=== PATIENT | female | born 1965 | race African-American/Black ===

== ENCOUNTER → 2020-08-08 | Outpatient (CLI) | payer MEDICAID ==
[~2020-08-08] MED LIST: ACET-2708 PO; ASPI-1497 PO; ATOR10TA69 PO; BENA20TA10 PO; CHOL50003 PO; TRIAMTERENE PO
== END | disposition home or self-care (01) ==
LOC: LAB 07:07
PROVIDERS: ATTEND Surgery
DX: Z01.812 Encounter for preprocedural laboratory examination (principal); Z20.828 Contact with and (suspected) exposure to other viral communicable diseases; C50.912 Malignant neoplasm of unspecified site of left female breast
CPT/HCPCS: 87426

== ENCOUNTER → 2020-08-08 | Outpatient (CLI) | payer MEDICAID ==
[~2020-08-08] MED LIST changes: +LIDOCAINE HCL 1% 20ML VIAL (Pyxis) INJ ONE; +SODIUM BICARBONATE 4% (2.4MEQ) 5ML VIAL IV ONE; +TETRACAINE/BENZOCAINE/BUTAMBEN 20 GM SPRAY MM ONE
== END | disposition home or self-care (01) ==
LOC: RAD 09:47
PROVIDERS: ATTEND Surgery
DX: N63.20 Unspecified lump in the left breast, unspecified quadrant (principal); C50.912 Malignant neoplasm of unspecified site of left female breast; Z79.82 Long term (current) use of aspirin; Z79.899 Other long term (current) drug therapy
CPT/HCPCS: 19285; J3490; Z7610

== ENCOUNTER → 2020-08-09 | Day surgery (SDC) | payer MEDICAID ==
[~2020-08-09] VITALS: Ht 152.4 cm; Wt 73.0 kg
[~2020-08-09] MED LIST changes: +BUPIVACAINE HCL 0.5% (5MG/ML) 50ML ONE; +BUPIVACAINE HCL/PF 0.25% (2.5MG/ML) 10ML ONE; +CEFAZOLIN SODIUM 1000MG/VIAL ONE; +DEXAMETHASONE 4MG/ML 1ML VIAL ONE; +EPHEDRINE SULFATE 50MG/ML VIAL ONE; +FENTANYL CITRATE/PF 50MCG/ML 2ML VIAL ONE; +HYDROMORPHONE HCL/PF 2MG/ML CPJ IV PRN; +KETOROLAC 30MG/ML VIAL ONE; +LACTATED RINGERS 1,000 ML IV SCH; +MEPERIDINE HCL/PF 25MG/ML CPJ IV PRN; +METHYLENE BLUE 50 MG/10 ML AMP IV ONE; +METOCLOPRAMIDE HCL 10MG/2ML VIAL ONE; +MIDAZOLAM HCL 2 MG/2 ML VIAL ONE; +ONDANSETRON HCL 4MG/2ML INJ IV PRN; +PROPOFOL 200MG/20ML VIAL IV ONE; +ROCURONIUM BROMIDE 10MG/ML VIAL 5ML IV ONE; +SKIN ADHESIVE 0.7 GM EA TOP ONE; -SODIUM BICARBONATE 4% (2.4MEQ) 5ML VIAL IV ONE; -TETRACAINE/BENZOCAINE/BUTAMBEN 20 GM SPRAY MM ONE; +TRIAMCINOLONE ACETONIDE 40MG/ML 1ML VIAL ONE
[2020-08-09 11:15] VITALS: BP 130/78
== END | disposition home or self-care (01) ==
LOC: OR 05:50
PROVIDERS: ATTEND Surgery
DX: C50.912 Malignant neoplasm of unspecified site of left female breast (principal); I10 Essential (primary) hypertension; E78.00 Pure hypercholesterolemia, unspecified; E78.5 Hyperlipidemia, unspecified; Z79.82 Long term (current) use of aspirin; Z79.899 Other long term (current) drug therapy; Z98.890 Other specified postprocedural states
CPT/HCPCS: 19301; 38525; 76098; 78195; 88304; 88305; 88331; J0690; J1100; J1170; J1885; J2250; J2405; J2704; J2765; J3010; J3301; J3490; Q9968